=== PATIENT | male | born 1960 | race Caucasian/White ===

== ENCOUNTER 2020-08-07 14:34 | Outpatient (RCR) | payer MEDICAID, SELFPAY ==
[2016-09-05 10:06] VITALS: BMI 44.9
== END 2020-10-13 23:59 ==
LOC: IMMUN 14:34
PROVIDERS: PCP Family Medicine; Referring Provider Family Medicine; Visit Provider Family Medicine
DX: Z23 Encounter for immunization (principal)
CPT/HCPCS: 0001A; 0002A; 91300